=== PATIENT | female | born 1950 | race African-American/Black ===

== ENCOUNTER 2018-05-28 14:28 | Inpatient (IN) | payer OTHER, MEDICARE | END 2018-05-29 19:24 | disposition home or self-care (01) | LOC: ER 14:28 → TELE 18:15 → TELE-WESTW 19:29 | DX: R10.9 Unspecified abdominal pain (principal); N39.0 Urinary tract infection, site not specified ==

== ENCOUNTER 2018-07-09 04:24 | Inpatient (IN) | payer OTHER | END 2018-07-10 17:15 | disposition home or self-care (01) | LOC: ER 04:24 → TELE 16:51 → WEST WING 22:05 | DX: R10.9 Unspecified abdominal pain (principal); C25.9 Malignant neoplasm of pancreas, unspecified; C78.7 Secondary malignant neoplasm of liver and intrahepatic bile duct; N39.0 Urinary tract infection, site not specified; Z85.07 Personal history of malignant neoplasm of pancreas; E87.6 Hypokalemia; E66.01 Morbid (severe) obesity due to excess calories; E78.5 Hyperlipidemia, unspecified; D72.819 Decreased white blood cell count, unspecified ==